=== PATIENT | female | born 1970 | race Caucasian/White ===

== ENCOUNTER 2022-08-17 10:55 | Emergency (ER) | payer OTHER, SELFPAY ==
[2022-08-17 10:57] VITALS: BP 125/70; PULSE 89; RESP 16; TEMP 36.6; O2SAT 100
--- NOTE | 2022-08-17 10:59 | ECG_ITS ---
Measurements Intervals [place] Rate: 81 P: 24 MS: 132 QRS: -1 QRSD: 97 T: 6 QT: 399 QTc: 466 Interpretive Statements SINUS RHYTHM NONSPECIFIC ST AND T-WAVE ABNORMALITY NO PREVIOUS ECG AVAILABLE FOR COMPARISON Electronically Signed On 08-17-2022 17:53:08 CDT by Ana Cristina Bravo M.D.
[2022-08-17 11:29] VITALS: RESP 20
--- NOTE | 2022-08-17 11:30 | PC.NURSE ---
this nurse discussed breathing techniques to reduce anxiety with patient at this time. Also worked with patient to open hand. Patient able to open R hand on her own. +2 pulses present to RUE. no obvious signs of stroke observed, negative FAST at this time. Patient states she hasn't been feeling right since July 08 and there is a lot of stress going on with her family.
--- NOTE | 2022-08-17 13:52 | ED.ANXIETY ---
HPI - Anxiety General Chief Complaint: Anxiety Stated Complaint: feels like she is going to pass out Time Seen by Provider: 08/17/22 13:14 Source: patient Mode of arrival: ambulatory Limitations: no limitations History of Present Illness HPI narrative: This is a 51-year-old female presents to the ED with chief complaint of anxiety beginning this morning after a family member's . Patient reports that she was hyperventilating and felt like her hand was spasming. She was feeling lightheaded but this is resolved. During the interview patient states that her anxiety was much worse in the waiting room, however it is feeling better when she is talking to me in the room. She states that she has a history of anxiety and does take Effexor prescribed by her primary care physician. Denies chest pain or shortness of breath. Denies any further complaint. Related Data Allergies Allergy/AdvReac Type Severity Reaction Status Date / Time morphine Allergy Unknown Unknown Verified 07/03/19 09:02 Sulfa (Sulfonamide Allergy Unknown Unknown Verified 07/03/19 09:02 Antibiotics) Review of Systems Review of Systems: CONSTITUTIONAL: Denies fever, chills, or sweats. EYES: Denies visual changes, redness, or discharge. ENT: Denies rhinorrhea, congestion, sore throat, or otalgia. CARDIOVASCULAR: Denies chest pain, palpitations, or edema. RESPIRATORY: Denies cough or dyspnea. GASTROINTESTINAL: Denies abdominal pain, nausea, vomiting, or diarrhea. GENITOURINARY: Denies dysuria or hematuria. SKIN: Denies rash or itching. MUSCULOSKELETAL: Denies back pain, joint pain, or myalgia. NEUROLOGIC: Denies headache, numbness, dizziness, or weakness. PSYCHIATRIC: Endorses anxiety and denies depression.. Exam Narrative: GENERAL: Well-appearing, well-nourished, and in no acute distress. HEAD: Normocephalic, atraumatic. EYES: PERRLA and EOMI. ENT: Nares clear, no rhinorrhea or epistaxis. Mucous membranes moist. Oropharynx without tonsillar hypertrophy exudate or other lesions. NECK: Supple. No adenopathy or masses. CHEST: No respiratory distress. Clear to auscultation. No wheezes rales or rhonchi HEART: Regular rate and rhythm. No murmur heard. Normal peripheral pulses. ABDOMEN: Soft, nontender, nondistended, normal active bowel sounds. EXTREMITIES: Normal range of motion. No edema. SKIN: Warm, dry, no rash. NEURO: Alert and oriented x3. No focal deficits. PSYCH: Normal mood and affect. Course Vital Signs Vital signs: Vital Signs Temperature 97.9 F 08/17/22 10:57 Pulse Rate 89 08/17/22 10:57 Respiratory Rate 16 08/17/22 10:57 Blood Pressure 125/70 08/17/22 10:57 Pulse Oximetry 100 08/17/22 10:57 Oxygen Delivery Room Air 08/17/22 10:57 Temperature 97.9 F 08/17/22 10:57 Pulse Rate 89 08/17/22 10:57 Respiratory Rate 20 08/17/22 11:29 Blood Pressure 125/70 08/17/22 10:57 Pulse Oximetry 100 08/17/22 10:57 Oxygen Delivery Room Air 08/17/22 10:57 MDM - Anxiety MDM Narrative Medical decision making narrative: This is a 51-year-old female presents to the ED with chief complaint of anxiety beginning this morning after a . Patient states she has had a lot going on and has been feeling stressed. Symptoms seem to have resolved by the time I am able to vitals are stable. Exam is grossly benign. Offered labs to check her blood counts and electrolytes as well as an EKG. EKG is within normal limits. Patient is requesting to leave before her lab work comes back. Told her I feel this is reasonable as suspect her symptoms are likely from a panic attack. She understands that I cannot rule out abnormalities with her blood counts or electrolytes without the labs. She is understanding of the plan for discharge and follow-up with PCP for further management of her anxiety medications. Discussed case with Dr. Rolle who also agrees with plan for discharge and follow-up. ECG Data EKG #1: ECG completion d
== END 2022-08-17 14:45 | disposition home or self-care (01) ==
PROVIDERS: Emergency Provider Physician Assistant; PCP Family Medicine
DX: F41.9 Anxiety disorder, unspecified (principal); R94.31 Abnormal electrocardiogram [ECG] [EKG]
CPT/HCPCS: 93005; 99283

== ENCOUNTER 2022-09-15 12:17 | Outpatient (CLI) | payer OTHER, SELFPAY ==
[2022-09-15 13:32] LABS: Thyroid Stimulating Hormone 0.073 uIU/mL (0.465-4.680)
[2022-09-15 13:47] LABS: Free T4 Free Thyroxine 2.57 ng/mL (0.78-2.19)
[2022-09-19 05:17] LABS: Thyroid Peroxidase Antibodies 6 IU/mL (<9)
[2022-09-20 07:33] LABS: Thyrotropin Receptor Antibody <1.00 IU/L (<=2.00)
[2022-09-21 14:31] LABS: Thyroid Stimulating Immunoglob <89 % baseline (<140)
== END 2022-09-15 12:18 | disposition home or self-care (01) ==
LOC: ANHLAB 12:19
PROVIDERS: PCP Family Medicine; Visit Provider Internal Medicine
DX: E06.3 Autoimmune thyroiditis (principal); E03.9 Hypothyroidism, unspecified
CPT/HCPCS: 36415; 83519; 84439; 84443; 84445; 86376